=== PATIENT | male | born 1945 | race Caucasian/White ===

== ENCOUNTER 2016-09-26 03:26 | Observation (INO) | payer MEDICARE, OTHER ==
[2016-09-26] MEDS ORDERED: TEMAZEPAM 7.5 MG CAP PO PRN (05:40)
[2016-09-26] MEDS ORDERED: NITROGLYCERIN 50 MG/250 ML IV PRN (05:40)
[2016-09-26] MEDS ORDERED: TRAMADOL 50 MG TAB PO PRN (05:40)
[2016-09-26] MEDS ORDERED: SODIUM CHLORIDE 0.9% FLUSH BAG 500 ML IV PRN (05:40)
[2016-09-26] MEDS ORDERED: SALINE FLUSH 10 ML FLUSH PRN (05:40)
[2016-09-26] MEDS ORDERED: MORPHINE 2 MG/ML SYR IV PRN (05:40)
[2016-09-26] MEDS ORDERED: ACETAMINOPHEN 325 MG TAB PO PRN (05:40)
[2016-09-26] MEDS ORDERED: DOCUSATE SOD 100 MG CAP PO PRN (05:40)
[2016-09-26] MEDS ORDERED: ONDANSETRON 4 MG VIAL IV PRN (05:40)
[2016-09-26] MEDS ORDERED: NITROGLYCERIN SL 0.4 MG TAB SL PRN ×2 (05:40→09:55)
[2016-09-26] MEDS ORDERED: LORAZEPAM 0.5 MG TAB PO PRN (05:40)
[2016-09-26] MEDS ORDERED: ASPIRIN EC 81 MG TAB PO SCH (08:00)
[2016-09-26] MEDS: NITROGLYCERIN 2% OINT 1 INCH PKT TOPICAL SCH ×2 (09:17→10:02)
[2016-09-26 09:22] VITALS: Wt 91.7 kg
[2016-09-26 09:23] VITALS: BP_SYST 138; BP_SYST 150; RESP 18; TEMP 97.9
[2016-09-26] MEDS: CALCIUM ACETATE 667MG CAP PO SCH ×3 (09:55→17:12)
[2016-09-26] MEDS: ASPIRIN EC 81 MG TAB PO SCH (09:55)
[2016-09-26] MEDS ORDERED: CLOPIDOGREL 75 MG TAB PO SCH (10:00)
[2016-09-26] MEDS: SALINE FLUSH 10 ML FLUSH SCH ×2 (10:02→19:57)
[2016-09-26] MEDS: NITROGLYCERIN 0.2 MG/HR PATCH TRANSDERM SCH (10:40)
[2016-09-26] MEDS: BUMETANIDE 1 MG TAB PO SCH (10:40)
[2016-09-26] MEDS: METOLAZONE 5 MG TAB PO SCH (10:40)
[2016-09-26] MEDS: GABAPENTIN 400 MG CAP PO SCH ×3 (10:40→20:09)
[2016-09-26] MEDS: CHOLECALCIFEROL 1,000 UNITS TAB PO SCH ×2 (10:40→20:09)
[2016-09-26] MEDS: Carvedilol 3.125 MG TAB PO SCH ×2 (10:40→20:09)
[2016-09-26] MEDS: PAROXETINE HCL 20 MG TAB PO SCH (10:40)
[2016-09-26 12:11] VITALS: BP_SYST 133; RESP 16; TEMP 97.9
[2016-09-26 15:29] VITALS: BP_SYST 109; RESP 18; TEMP 97.3
[2016-09-26 20:12] VITALS: BP_SYST 144; RESP 20; TEMP 97.6
[2016-09-26] MEDS ORDERED: Atorvastatin 10 MG TAB PO SCH (21:00)
[2016-09-26] MEDS ORDERED: TAMSULOSIN 0.4 MG CAP PO SCH (21:00)
[2016-09-26] MEDS ORDERED: Losartan 50 MG TAB PO SCH (21:00)
[2016-09-26] MEDS ORDERED: *PINK BRACELET XX ONE (21:55)
[2016-09-26 23:00] VITALS: BP_SYST 115; RESP 20; TEMP 98
[2016-09-27 04:10] VITALS: BP_SYST 105; RESP 20; TEMP 98.5
[2016-09-27] MEDS ORDERED: TEMAZEPAM 7.5 MG CAP PO PRN (07:15)
[2016-09-27 07:31] VITALS: TEMP 98.4
[2016-09-27 07:32] VITALS: BP_SYST 127
[2016-09-27 07:34] VITALS: RESP 20
[2016-09-27] MEDS ORDERED: *HOME MEDS KEPT IN PHARMACY XX SCH (08:00)
[2016-09-27] MEDS: Carvedilol 3.125 MG TAB PO SCH (08:09)
[2016-09-27] MEDS: SALINE FLUSH 10 ML FLUSH SCH (08:09)
[2016-09-27] MEDS: CALCIUM ACETATE 667MG CAP PO SCH (08:10)
[2016-09-27] MEDS: METOLAZONE 5 MG TAB PO SCH (08:10)
[2016-09-27] MEDS: BUMETANIDE 1 MG TAB PO SCH (08:10)
[2016-09-27] MEDS: CHOLECALCIFEROL 1,000 UNITS TAB PO SCH (08:10)
[2016-09-27] MEDS: GABAPENTIN 400 MG CAP PO SCH (08:10)
[2016-09-27] MEDS: ASPIRIN EC 81 MG TAB PO SCH (08:11)
[2016-09-27] MEDS: PAROXETINE HCL 20 MG TAB PO SCH (08:11)
[2016-09-27] MEDS: NITROGLYCERIN 0.2 MG/HR PATCH TRANSDERM SCH (08:11)
[2016-09-27 09:46] VITALS: BP_SYST 127; RESP 20; TEMP 98.4
== END 2016-09-27 09:43 | disposition home or self-care (01) ==
LOC: ENRESERV → ENRESERVDT → ENRESERVTM → ER 03:26 → EMR 04:50 → ENPENDDIS 04:50 → PCU2 09:07
PROVIDERS: ADMIT Internal Medicine Cardiovascular Disease; ATTEND Internal Medicine Cardiovascular Disease
CPT/HCPCS: 71010 ×2; 93005 ×2; 94799; 99284; G0378